=== PATIENT | male | born 1995 | race Caucasian/White ===

== ENCOUNTER 2018-10-18 13:37 | Emergency (ER) | payer OTHER ==
[~2018-10-18] VITALS: Ht 180.3 cm; Wt 81.6 kg
[2018-10-18 14:02] VITALS: BP 104/69
--- NOTE | 2018-10-18 14:45 | Emergency Room Report ---
History of Present Illness General Chief Complaint: Pain Source: Patient Present Illness HPI 22-year-old male presents to the emergency department complaining of 3 out of 10 in severity discomfort in the right upper arm located in the spot where he had opiate deterrent implant inserted. Patient denies erythema, warmth, swollen tender lymph nodes, fevers or chills. Patient states that he has had implant in for 11 months now. He states he no longer wants to use the implant as he is going through drug court and it is causing him to test positive. Patient denies any other medical complaints at this time. It's that the provider who inserted the implant lost his license and is no longer practicing. Allergies: Coded Allergies: DOXYCYCLINE (Verified Allergy, Unknown, 10/18/18) Patient History Past Medical History: see triage record Past Surgical History: none Pertinent Family History: none Immunizations: UTD Reviewed Nursing Documentation: PMH: Agreed; PSxH: Agreed Nursing Documentation-PMH Past Medical History: No History, Except For Review of Systems All Other Systems: negative except mentioned in HPI Physical Exam Vital Signs Date Time Temp Pulse Resp B/P (MAP) Pulse Ox O2 Delivery O2 Flow Rate FiO2 10/18/18 13:44 97.9 74 20 104/69 95 Room Air Sp02 EP Interpretation: reviewed, normal General Appearance: no apparent distress, alert, GCS 15, non-toxic Head: normocephalic, atraumatic Eyes: bilateral eye normal inspection, bilateral eye PERRL ENT: hearing grossly normal, normal voice Neck: full range of motion Respiratory: lungs clear, normal breath sounds, speaking full sentences Cardiovascular #1: regular rate, rhythm Musculoskeletal: back normal, gait/station normal, normal range of motion, non- tender Neurologic: alert, oriented x3, responsive, motor strength/tone normal, sensory intact, speech normal, grossly normal Psychiatric: judgement/insight normal Skin: normal color, no rash, warm/dry, well hydrated, other - palpable 1cm retained implant/ FB in the ST of right upper arm, no indication of infection. Lymphatic: no adenopathy Medical Decision Making PA Attestation Dr. Presley is my supervising Physician whom patient management has been discussed with. Diagnostic Impression: Primary Impression: Retained foreign body in soft tissue ER Course 22-year-old male presents to the emergency department complaining of 3 out of 10 in severity discomfort in the right upper arm located in the spot where he had opiate deterrent implant inserted. Patient denies erythema, warmth, swollen tender lymph nodes, fevers or chills. Patient states that he has had implant in for 11 months now. He states he no longer wants to use the implant as he is going through drug court and it is causing him to test positive. Patient denies any other medical complaints at this time. It's that the provider who inserted the implant lost his license and is no longer practicing. Ddx considered but are not limited to cellulitis, retained FB, cyst/abscess, puncture wound, laceration Vital signs: are WNL, pt. is afebrile H&PE are most consistent with palpable 1cm retained implant/ FB in the ST of right upper arm, no indication of infection. ORDERS: none required at this time, the diagnosis is clinical ED INTERVENTIONS: - d/w pt. needs to be removed by implant specialist.. instructed to follow up with a provider who is currently in practice placing and removing these implants. -I do not identify an emergent condition at this time. With current presentation , pt. is stable for close outpatient follow up and conservative treatment. D/ w pt. to return promptly to ED with worsening or new symptoms.- Pt. verbalizes' understanding and agreement with proposed treatment plan.proposed treatment plan. -Pt. was offered rx for Narcan as he has hx of opiate dependence. Pt. respectfully declines. DISCHARGE: At this time pt. is stable for d/c to home. Will provide printed patient care instructions, and any necessary prescriptions. Care plan and follow up instructions have been discussed with the patient prior to discharge. Last Vital Signs Date Time Temp Pulse Resp B/P (MAP) Pulse Ox O2 Delivery O2 Flow Rate FiO2 10/18/18 14:02 97.9 72 20 104/69 95 Room Air Disposition: HOME, SELF-CARE Condition: Stable Patient Instructions: Medical Screening Exam Additional Instructions: Take medications as directed. Follow up with a Primary Care Provider in 3-5 days, even if your symptoms have resolved. --Please review list of primary care clinics, if you do not already have a primary care provider please see list of substance abuse resources if you require further support and management of opiate dependence. Return sooner to ED if new symptoms occur, or current symptoms become worse. - Please note that this Emergency Department Report was dictated using Dragon liner replacer technology software, occasionally this can lead to erroneous entry secondary to interpretation by the dictation equipment. Vicenta Marie Oct 18, 2018 14:45
[2018-10-18 15:22] VITALS: BP 104/69
--- NOTE | 2018-10-18 15:24 | NUR ---
ER DISCHARGE NOTE: Patient is cleared to be discharged per ERMD, pt is aox4, on room air, with stable vital signs. pt was given dc instructions, pt was able to verbalize understanding, pt is able to ambulate with steady gait. pt took all belongings.
== END 2018-10-18 15:24 | disposition home or self-care (01) ==
LOC: EMR 14:45
DX: M79.5 Residual foreign body in soft tissue (principal); Z88.8 Allergy status to other drugs, medicaments and biological substances
CPT/HCPCS: 99282

== ENCOUNTER 2018-11-11 09:07 | Emergency (ER) | payer OTHER ==
[~2018-11-11] VITALS: Ht 180.3 cm; Wt 80.7 kg
[2018-11-11 09:31] VITALS: BP 134/82
--- NOTE | 2018-11-11 09:41 | Emergency Room Report ---
History of Present Illness General Chief Complaint: Overdose Source: Patient Present Illness HPI Patient is in a rehab facility for opiate abuse. He was able to obtain white powdery material which he self injected. Discussed him to lose consciousness. He turned blue and other residents administered intranasal Narcan. EMS were summoned. He woke up with 3 administrations of Narcan intranasally. EMS determined normal blood glucose. The patient denies intent to harm himself. He states he has significant anxiety. He is concerned because he had been taking clonidine. He denies hepatitis C and HIV. No fevers, chills, chest pain, palpitations, nausea, vomiting, diarrhea, dysuria , abdominal pain, shortness of breath, visual changes, headache. Allergies: Coded Allergies: DOXYCYCLINE (Verified Allergy, Unknown, 10/18/18) Patient History Social History: Reports: smoking, drug use Social History Narrative In rehab Reviewed Nursing Documentation: PMH: Agreed; PSxH: Agreed Nursing Documentation-PMH Past Medical History: No History, Except For Review of Systems All Other Systems: negative except mentioned in HPI Physical Exam Vital Signs Date Time Temp Pulse Resp B/P (MAP) Pulse Ox O2 Delivery O2 Flow Rate FiO2 11/11/18 09:00 98.2 72 20 99 11/11/18 09:31 Room Air 11/11/18 09:31 134/82 Sp02 EP Interpretation: reviewed, normal General Appearance: well appearing, no apparent distress, GCS 15 Head: normocephalic Eyes: bilateral eye normal inspection, bilateral eye PERRL, bilateral eye EOMI ENT: moist mucus membranes Neck: supple Respiratory: lungs clear, normal breath sounds Cardiovascular #1: regular rate, rhythm Cardiovascular #2: 2+ radial (R) Gastrointestinal: normal inspection, normal bowel sounds, non tender, no mass, non-distended Musculoskeletal: back normal, gait/station normal, normal range of motion Neurologic: alert, oriented x3, grinder hardboard III-XII nml as tested, motor strength/tone normal, sensory intact, cerebellar normal, normal gait, speech normal Psychiatric: no suicidal/homicidal ideation, anxious Skin: normal inspection, warm/dry Medical Decision Making Diagnostic Impression: Primary Impression: Opiate overdose Qualified Codes: T40.601A - Poisoning by unspecified narcotics, accidental ( unintentional), initial encounter ER Course Patient post opiate overdose awake on Narcan. Differential includes opiate overdose with Narcan reversal, pulmonary edema, opiate excess, possible hypotension from clonidine and opiates. The patient denies suicidal ideation. We agreed that he would be observed for the. At the time that the Narcan would wear off. Patient reevaluated twice. No dyspnea. Vital signs remained stable. Occult resident from the rehab facility came. They are accepting the patient back. On final evaluation the patient has mild opiate effects with pinpoint pupils and slightly slow response however there is no lethargy and is fully awake. Prescribed Narcan to patient. Patient stable for outpatient observation and treatment. Last Vital Signs Date Time Temp Pulse Resp B/P (MAP) Pulse Ox O2 Delivery O2 Flow Rate FiO2 11/11/18 10:30 98.0 100 16 129/82 96 Room Air Status: improved Disposition: HOME, SELF-CARE Condition: Improved Scripts Naloxone HCl (Narcan) 4 Mg [place] 4 MG NS NEEDED, #1 SPRAY 1 Refill Prov: Kris Womack MD 11/11/18 Kris Womack MD November 11, 2018 09:41
[2018-11-11] MEDS ORDERED: NARCAN4 MG NS (09:42)
[2018-11-11 10:25] VITALS: BP 129/82
[2018-11-11 10:30] VITALS: BP 129/82
== END 2018-11-11 10:30 | disposition home or self-care (01) ==
LOC: EDBD 09:07 → EMR 09:40
DX: T40.601A Poisoning by unspecified narcotics, accidental (unintentional), initial encounter (principal); X58.XXXA Exposure to other specified factors, initial encounter; Y92.9 Unspecified place or not applicable; F17.200 Nicotine dependence, unspecified, uncomplicated; Z88.8 Allergy status to other drugs, medicaments and biological substances
CPT/HCPCS: 99283